=== PATIENT | male | born 1950 | race Caucasian/White ===

== ENCOUNTER 2016-11-27 08:18 | Inpatient (IN) | payer BC ==
[2016-11-27] MEDS ORDERED: SODIUM CHLORIDE 1,000 ML IV STA (08:19)
--- NOTE | 2016-11-27 08:22 | PDOC ---
History of Present Illness - General Chief Complaint: Pain, Acute Stated Complaint: RIGHT FLANK PAIN Time Seen by Provider: 11/27/16 08:19 History Source: Patient Exam Limitations: No Limitations - History of Present Illness Initial Comments: 11/27/16 08:22 This pt is a 66 yo M with a history of multiple prior kidney stone and HTN presenting to the ER with a complaint of right flank pain. He states his symptoms began this morning upon awakening. He has not had these symptoms in the past 8 years. Pain described as sharp, located in the right flank, rated 10/10. No exacerbating or alleviating factors. Pt has previously had symptoms like this, s/p cystoscopy, percutaneous nephrostomy, s/p lithotripsy. No fevers or chills. No hematuria or dysuria. PMH: HTN, Kidney stone PSH: lithotripsy Meds: ALL: hydrocodone --> itchy Social: PMD: [place] ROS: GENERAL/CONSTITUTIONAL: No: fever, chills, weakness, loss of appetite. HEAD, EYES, EARS, NOSE AND THROAT: No: change in vision, ear pain, discharge, sore throat, throat swelling. CARDIOVASCULAR: No: chest pain, lightheadedness, palpitations, syncope RESPIRATORY: No: cough, shortness of breath, wheezing, hemoptysis, stridor. GASTROINTESTINAL: No: abdominal pain, nausea, vomiting, diarrhea GENITOURINARY: Yes: flank pain No: dysuria, hematuria, frequency, urgency MUSCULOSKELETAL: No: back pain, neck pain, joint pain, muscle swelling or pain SKIN: No: lesions, pallor, rash or easy bruising. NEUROLOGIC: No: headache, vertigo, paresthesias, weakness ENDOCRINE: No: unexplained weight gain or loss HEMATOLOGIC/LYMPHATIC: No: anemia, easy bleeding, swelling nodes. PHYSICAL EXAM GENERAL: The patient is in no acute distress. HEAD: Normal with no signs of trauma. EYES: PERRLA, EOMI, sclera anicteric, conjunctiva clear. ENT: Ears normal, nares patent, oropharynx clear without exudates. Moist mucous membranes. NECK: Normal range of motion, supple without lymphadenopathy, JVD, or masses. LUNGS: Breath sounds equal, clear to auscultation bilaterally. No wheezes, and no crackles. HEART: Regular rate and rhythm, normal S1 and S2 without murmur, rub or gallop. ABDOMEN: No abdominal tenderness to palpation, EXTREMITIES: Normal range of motion, no edema. No clubbing or cyanosis. No erythema, or tenderness. NEUROLOGICAL: Cranial nerves II through XII grossly intact. Normal speech. No focal neurological deficits. MUSCULOSKELETAL: (+) CVA tenderness SKIN: Warm, Dry, normal turgor, no rashes or lesions noted. 11/27/16 08:31 11/27/16 08:34 11/27/16 09:06 Past History - Past Medical History Allergies/Adverse Reactions: Allergies Allergy/AdvReac Type Severity Reaction Status Date / Time hydrocodone [Hydrocodone] AdvReac Mild itching, Verified 11/27/16 08:19 nausea and vomiting COPD: Yes - Immunization History Td Vaccination: No - Psycho/Social/Smoking Cessation Hx Anxiety: No Suicidal Ideation: No Smoking Status: No Smoking History: Former smoker Number of Cigarettes Smoked Daily: 0 ED Treatment Course - LABORATORY CBC & Chemistry Diagram: 11/27/16 08:28 11/28/16 06:00 Medical Decision Making - Medical Decision Making 11/27/16 08:39 Right flank pain: DD: Kidney stone, Pyelonephritis, RP rupture Aneurysm (unlikely) Will give pain medications Check UA Check Creatinine Give IV fluids Spiral CT Re assess 11/27/16 09:08 Pt give toradol and morphine Pt more comfortable 11/27/16 09:09 Laboratory Tests 11/27/16 11/27/16 08:28 08:28 WBC 19.5 H D Hgb 16.5 Hct 47.2 Plt Count 334 Neutrophils % 84.5 H D Urine Blood 3+ H Urine Nitrite Negative Ur Leukocyte Esterase Negative Urine RBC 10-20 Urine WBC 0-3 Ur Epithelial Cells Few Urine Bacteria Moderate 11/27/16 09:31 Laboratory Tests 11/26/15 11/27/16 09:55 08:26 Sodium 136 Potassium 3.9 Chloride 104 Carbon Dioxide 27 BUN 17 24 H D Creatinine 0.9 1.4 H D Random Glucose 97 124 H D 11/27/16 09:[address] Marques Pt is concerning given high WBC, elevated creatinine He would like this patient to be transferred to [facility] Pt to have blood cultures and start abx Pt may need cystoscopy Pt to be admitted to hosptialist service Clinical impression: Obstructing kidney stone, leukocytosis, renal insufficiency 11/27/16 09:55 Pt wants to stay at [facility] for now I told him I will re assess him in 30 minutes 11/27/16 10:48 Case reviewed with [employer] Mary Ann Will admit to Hospitalist service Transfer to [facility] *DC/Admit/Observation/Transfer Diagnosis at time of Disposition: Kidney stone on right side - Discharge Dispostion Condition at time of disposition: Stable Admit: Yes - Referrals
[2016-11-27] MEDS ORDERED: KETOROLAC TROMETHAMINE 30 MG/1 ML VIAL IVPUSH ONE (08:33)
[2016-11-27] MEDS ORDERED: KETOROLAC TROMETHAMINE 30 MG/1 ML VIAL ONE ×2 (08:37→15:10)
[2016-11-27] MEDS ORDERED: morphine CARPU-JECT 10 MG/1 ML DISP.SYRIN ONE (08:42)
[2016-11-27] MEDS ORDERED: morphine CARPU-JECT 4 MG/1 ML DISP.SYRIN IVPUSH ONE (08:42)
[2016-11-27 08:45] LABS: URINE APPEARANCE Clear; URINE BILIRUBIN Negative (NEGATIVE); URINE GLUCOSE (UA) Negative (NEGATIVE); URINE KETONE Negative (NEGATIVE); URINE LEUK ESTERASE Negative (NEGATIVE); URINE NITRITE Negative (NEGATIVE); URINE UROBILINOGEN 0.2 E.U/dl (0.2-1.0)
[2016-11-27 08:49] LABS: URINE BLOOD 3+ (NEGATIVE); URINE COLOR YELLOW; URINE PROTEIN 1+ (NEGATIVE)
[2016-11-27 08:50] LABS: URINE BACTERIA MODERATE /hpf (NEGATIVE); URINE WBC 0-3 (3-5)
[2016-11-27 08:57] LABS: BASOPHIL 1.2 % (0-2.0); EOSINOPHIL 1.1 % (0-4.5); MCH 30.3 pg (25.7-33.7); MCHC 34.9 g/dl (32.0-35.9); MEAN PLT VOLUME 6.7 fl (7.5-11.1); NEUTROPHILS 84.5 % (42.8-82.8); PLATELET COUNT 334 K/MM3 (134-434); RDW 13.5 % (11.9-15.9); WHITE BLOOD COUNT 19.5 K/mm3 (4.0-10.0)
[2016-11-27 09:17] LABS: ALBUMIN 4.2 g/dl (3.5-5.0); BILIRUBIN,TOTAL 0.5 mg/dl (0.2-1.0); CALCIUM 9.6 mg/dl (8.4-10.2); COCKROFT - GAULT 82.07; CREATININE 1.4 mg/dl (0.6-1.3); TOT PROT 7.8 g/dl (6.4-8.3)
[2016-11-27] MEDS ORDERED: CEFTRIAXONE 1 GM in DEXTROSE 5%-WATER - 50 ML IVPB ONE (10:36)
[2016-11-27] MEDS ORDERED: KETOROLAC TROMETHAMINE 15 MG/ML VIAL IVPUSH PRN ×2 (10:49→15:39)
[2016-11-27] MEDS ORDERED: morphine CARPU-JECT 2 MG/1 ML DISP.SYRIN IVPUSH PRN (10:49)
[2016-11-27] MEDS ORDERED: cefTRIAXone SODIUM 1 GM VIAL ONE (10:52)
[2016-11-27] MEDS ORDERED: SODIUM CHLORIDE 1,000 ML IV SCH ×2 (11:00→15:39)
[2016-11-27] MEDS ORDERED: GENTAMICIN 80MG PREMIX BAG IVPB ONE (14:02)
--- NOTE | 2016-11-27 14:25 | HP ---
CHIEF COMPLAINT: Flank pain PCP: Dr. Catherine HISTORY OF PRESENT ILLNESS: This is a 66 year old male with a history of HTN and multiple prior episodes of nephrolithiasis who presented to the [place] ED today complaining of right flank pain since morning. Patient seen and examined s/p cystoscopy and stent placement. 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 Smoking: Quit 15 yrs ago Alcohol: None Allergies hydrocodone [Hydrocodone] Adverse Reaction (Mild, Verified 11/27/16 08:19) itching, nausea and vomiting HOME MEDICATIONS: REVIEW OF SYSTEMS CONSTITUTIONAL: Absent: fever, chills, diaphoresis, generalized weakness, malaise, loss of appetite, weight change HEENT: Absent: rhinorrhea, nasal congestion, throat pain, throat swelling, difficulty swallowing, mouth swelling, ear pain, eye pain, visual changes CARDIOVASCULAR: Absent: chest pain, syncope, palpitations, irregular heart rate, lightheadedness , peripheral edema RESPIRATORY: Absent: cough, shortness of breath, dyspnea with exertion, orthopnea, wheezing, stridor, hemoptysis GASTROINTESTINAL: Absent: abdominal pain, abdominal distension, nausea, vomiting, diarrhea, constipation, melena, hematochezia GENITOURINARY: Right flank pain, noted to have hematuria post-op MUSCULOSKELETAL: Absent: myalgia, arthralgia, joint swelling, back pain, neck pain SKIN: Absent: rash, itching, pallor HEMATOLOGIC/IMMUNOLOGIC: Absent: easy bleeding, easy bruising, lymphadenopathy, frequent infections ENDOCRINE: Absent: unexplained weight gain, unexplained weight loss, heat intolerance, cold intolerance NEUROLOGIC: Absent: headache, focal weakness or paresthesias, dizziness, unsteady gait, seizure, mental status changes, bladder or bowel incontinence PSYCHIATRIC: Absent: anxiety, depression, suicidal or homicidal ideation, hallucinations. PHYSICAL EXAMINATION GENERAL: Awake, alert, and fully oriented, in no acute distress. HEAD: Normal with no signs of trauma. EYES: Pupils equal, round and reactive to light, extraocular movements intact, sclera anicteric, conjunctiva clear. No lid lag. EARS, NOSE, THROAT: Ears normal, nares patent, oropharynx clear without exudates. Moist mucous membranes. NECK: Normal range of motion, supple without lymphadenopathy, JVD, or masses. LUNGS: Breath sounds equal, clear to auscultation bilaterally. No wheezes, and no crackles. No accessory muscle use. HEART: Regular rate and rhythm, normal S1 and S2 without murmur, rub or gallop. ABDOMEN: Soft, protuberant, not distended, normoactive bowel sounds, no guarding , no rebound, no masses. No hepatomegaly or splenomegaly. MUSCULOSKELETAL: Normal range of motion at all joints. No bony deformities or tenderness. No CVA tenderness. UPPER EXTREMITIES: 2+ pulses, warm, well-perfused. No cyanosis. No clubbing. No peripheral edema. LOWER EXTREMITIES: 2+ pulses, warm, well-perfused. No calf tenderness. No peripheral edema. NEUROLOGICAL: Cranial nerves II-XII intact. Normal speech. Normal gait. PSYCHIATRIC: Cooperative. Good eye contact. Appropriate mood and affect. SKIN: Warm, dry, normal turgor, no rashes or lesions noted, normal capillary refill. ASSESSMENT/PLAN: 66 year old male with obstructing renal calculus. Problem List - Problem (1) Kidney stone on right side Assessment/Plan: -S/p cystoscopy and stent placement with Dr. Das today -Continue Ceftriaxone 1g daily -Follow up blood and urine cultures -Ketoralac 15mg q6h prn pain (opiate allergy) -IVF -Follow Cr -Discuss[facility] with Dr[facility] Das[facility] Code[facility]s): N20.0 - CALCULUS OF KIDNEY (2) Hypertension Assessment/Plan: -BPs above goal -Continue home Norvasc -Re-assess when pain is controlled Code(s): I10 - ESSENTIAL (PRIMARY) HYPERTENSION (3) DVT prophylaxis Assessment/Plan: -Early ambulation -[facility] Code(s): SWS6976 - Visit type - Emergency Visit Emergency Visit: Yes ED Registration Date: 11/27/16 Care time: The patient presented to the Emergency Department on the above date and was hospitalized for further evaluation of their emergent condition. - New Patient This patient is new to me today: Yes Date on this admission: 11/27/16 - Critical Care Critical Care patient: No
[2016-11-27] MEDS ORDERED: MIDAZOLAM HCL 2 MG/2 ML SINGLE DOSE VIAL ONE (14:43)
--- NOTE | 2016-11-27 14:44 | CON.GU ---
Consult - History of Present Illness History of Present Illness: 66 yo male with acute onset of rt renal colic, chills and WBC of 19, creat 1.4 ( baseline 0.8). CT shows 3 mm obstructing RDU stone. Prior h/o nephrolithiasis necessiating percutaneous treatment in the past. No dysuria - Alcohol/Substance Use Hx Alcohol Use: No - Smoking History Smoking history: Former smoker Aproximately how many cigarettes per day: 0 Home Medications - Allergies Allergies/Adverse Reactions: Allergies Allergy/AdvReac Type Severity Reaction Status Date / Time hydrocodone [Hydrocodone] AdvReac Mild itching, Verified 11/27/16 08:19 nausea and vomiting Physical Exam- Vital Signs: Vital Signs Temperature 98.5 F 11/27/16 11:04 Pulse Rate 78 11/27/16 11:04 Respiratory Rate 18 11/27/16 11:04 Blood Pressure 152/90 11/27/16 11:04 O2 Sat by Pulse Oximetry (%) 98 11/27/16 11:04 Renal/: Yes: CVA Tenderness - Right Imaging - Results Cat Scan: Image Reviewed Problem List - Problems (1) Ureteral calculus, right Assessment/Plan: in light of elevated WBC, will plan for emergent cysto/stent placement. understands potential need for percutaneous nephrostomy tube placement Code(s): N20.1 - CALCULUS OF URETER
[2016-11-27] MEDS ORDERED: PROPOFOL 20 ML ONE (14:53)
[2016-11-27] MEDS ORDERED: SUCCINYLCHOLINE CHLORIDE 200 MG/10 ML VIAL ONE (14:54)
[2016-11-27] MEDS ORDERED: GENTAMICIN SO4 80 MG/2 ML VIAL ONE (15:02)
[2016-11-27] MEDS ORDERED: LIDOCAINE HCL/PF 2% SDV 5ML VIAL ONE (15:10)
[2016-11-27] MEDS ORDERED: DEXAMETHASONE SOD PHOSPHATE 4 MG/1 ML VIAL ONE (15:10)
--- NOTE | 2016-11-27 15:18 | OP ---
Operative Note - Note: Operative Date: 11/27/16 Pre-Operative Diagnosis: obstructing rt distal ureteral stone Operation: cysto/retro/stent placement Findings: obstructed rdu stone Post-Operative Diagnosis: Same as Pre-op Surgeon: Trace Das Anesthesiologist/SENIOR HEALTH CONSULTANT: Alize Morris MD Anesthesia: General Estimated Blood Loss (mls): 0 Drains & Tubes with Location: 7fr, 26cm stent Operative Report Dictated: Yes
[2016-11-27] MEDS ORDERED: ONDANSETRON 4 MG/2 ML VIAL IVPUSH PRN (15:35)
[2016-11-27] MEDS ORDERED: LACTATED RINGERS SOLUTION 1,000 ML IV SCH (15:45)
[2016-11-27 17:01] VITALS: BMI 35.2
[2016-11-28] MEDS: amLODIPine BESYLATE 5 MG TABLET (FP) PO SCH (03:40)
[2016-11-28] MEDS: SODIUM CHLORIDE 0.45% 1,000 ML IV SCH (03:41)
--- NOTE | 2016-11-28 06:19 | OP ---
DATE OF OPERATION: 11/27/2016 PREOPERATIVE DIAGNOSIS: Obstructing right distal ureteral stone and elevated white count. POSTOPERATIVE DIAGNOSIS: Obstructing right distal ureteral stone and elevated white count. PROCEDURE: Cystoscopy, retrograde pyelogram, and stent placement. SURGEON: Musa Rubalcava MD INDICATIONS: The patient is a 66-year-old male admitted with obstructing stone, chills, white count of 19, and elevated creatinine. He is taken emergently for cystoscopy and stent placement. Risks, benefits, and alternatives discussed. DESCRIPTION OF PROCEDURE: The patient was taken to the OR and placed supine on the operating room table. With cardiac monitoring and general anesthesia established, antibiotics had been given. At this point, the cystoscope was inserted into the urethra without difficulty 3 very occlusive. The bladder was visualized. No tumors or stones noted in the bladder. Attention was turned to the right ureteral orifice. This was intubated with a ureteral catheter, and a guidewire was advanced beyond the stone and distal ureter and up into the renal pelvis. Over the guidewire, a ureteral catheter was advanced, and contrast was injected for retrograde pyelogram. There was hydroureteronephrosis. Ureteral catheter was then removed, and a 7-Divehi 26-cm pigtail stent was then advanced in a fashion. Fluoroscopy confirmed stent to be in good position. The patient was awoken from anesthesia and transfer to the recovery room in stable condition. There were no complications. Estimated blood loss was 0. MUSA RUBALCAVA M.D. [id number]
[2016-11-28] MEDS ORDERED: amLODIPine BESYLATE 5 MG TABLET (FP) PO SCH (07:00)
[2016-11-28 08:01] LABS: BASOPHIL 0.2 % (0-2.0); MCH 30.1 pg (25.7-33.7); MCHC 35.4 g/dl (32.0-35.9); MEAN CELL VOLUME 84.8 fl (80-96); MEAN PLT VOLUME 6.8 fl (7.5-11.1); NEUTROPHILS 85.3 % (42.8-82.8); PLATELET COUNT 254 K/MM3 (134-434); RDW 14.3 % (11.9-15.9); WHITE BLOOD COUNT 13.3 K/mm3 (4.0-10.0)
[2016-11-28 08:28] LABS: ALBUMIN 3.3 g/dl (3.4-5.0); ANION GAP 11 (8-16); CALCIUM 8.3 mg/dL (8.5-10.1); CO2 26 mmol/L (21-32); GLUCOSE,RANDOM 108 mg/dL (74-106)
[2016-11-28 08:31] LABS: ALK PHOS 54 U/L (45-117); BILIRUBIN,TOTAL 0.7 mg/dL (0.2-1.0); COCKROFT - GAULT 130.3; CREATININE 0.9 mg/dL (0.7-1.3); SGOT/AST 19 U/L (15-37); SGPT/ALT 51 U/L (12-78); TOT PROT 6.3 g/dl (6.4-8.2)
[2016-11-28] MEDS ORDERED: CEFTRIAXONE 50 ML IVPB SCH (10:00)
[2016-11-28] MEDS: CEFTRIAXONE 50 ML IVPB SCH (10:08)
--- NOTE | 2016-11-28 10:37 | PN ---
Progress Note (short form) - Note Progress Note: afebrile hematuria clearing abd soft c/o stent pain analgesics prn may discharge when WBC normalized and cultures have identified organism will need lithotripsyu electively Problem List - Problems (1) Ureteral calculus, right Code(s): N20.1 - CALCULUS OF URETER
--- NOTE | 2016-11-28 10:49 | PN ---
Progress Note (short form) - Note Progress Note: c/o pain on urination. urine was bright blood in the evening but now is pinkish. states his pain is only when urinating. denies CP, SOB,fever, chills, N /V/C?D. last BM yesterday Current Medications Generic Name Dose Route Start Last Admin Trade Name Freq PRN Reason Stop Dose Admin Amlodipine Besylate 5 mg 11/28/16 03:30 11/28/16 03:40 Norvasc - PO 5 mg AM PRINCE Administration Fentanyl 50 mcg 11/27/16 15:35 Sublimaze Injection - IVPUSH 11/30/16 15:36 [id number] PRN PAIN Ceftriaxone Sodium 50 mls @ 100 mls/hr 11/28/16 10:00 11/28/16 10:08 Rocephin 1gm Ivpb (Pre-Docked) IVPB 100 mls/hr DAILY PRINCE Administration Sodium Chloride 1,000 mls @ 75 mls/hr 11/28/16 03:30 11/28/16 03:41 1/2 Normal Saline IV 75 mls/hr ASDIR PRINCE Administration Ketorolac Tromethamine 15 mg 11/27/16 15:39 Toradol Injection - IVPUSH 12/02/16 10:48 Q6H PRN PAIN Last Vital Signs Temp Pulse Resp BP Pulse Ox 98 F 94 H 20 154/95 97 11/28/16 07:00 11/28/16 07:00 11/28/16 07:00 11/28/16 07:00 11/27/16 21:00 General NAD CV S1 S2 RRR no murmur/rub/gallop Lungs CTA B/L no wheezing/rales/rhonci Abdomen soft NT/ND no CVA tenderness Extremities no pedal edema CBCD WBC 19.5 K/mm3 (4.0-10.0) H D 11/27/16 08:28 RBC 5.43 M/mm3 (4.00-5.60) 11/27/16 08:28 Hgb 16.5 GM/dl (11.7-16.9) 11/27/16 08:28 Hct 47.2 % (35.4-49) 11/27/16 08:28 MCV 87.0 fl (80-96) 11/27/16 08:28 MCHC 34.9 g/dl (32.0-35.9) 11/27/16 08:28 RDW 13.5 % (11.9-15.9) 11/27/16 08:28 Plt Count 334 K/MM3 (134-434) 11/27/16 08:28 MPV 6.7 fl (7.5-11.1) L 11/27/16 08:28 CMP Sodium 142 mmol/L (136-145) 11/28/16 06:00 Potassium 3.7 mmol/L (3.5-5.1) 11/28/16 06:00 Chloride 105 mmol/L (98-107) 11/28/16 06:00 Carbon Dioxide 26 mmol/L (21-32) 11/28/16 06:00 Anion Gap 11 (8-16) 11/28/16 06:00 BUN 17 mg/dL (7-18) 11/28/16 06:00 Creatinine 0.9 mg/dL (0.7-1.3) 11/28/16 06:00 Creat Clearance w eGFR > 60 (>60) 11/28/16 06:00 Calcium 8.3 mg/dL (8.5-10.1) L 11/28/16 06:00 Total Bilirubin 0.7 mg/dL (0.2-1.0) 11/28/16 06:00 AST 19 U/L (15-37) 11/28/16 06:00 ALT 51 U/L (12-78) 11/28/16 06:00 Alkaline Phosphatase 54 U/L (45-117) 11/28/16 06:00 Total Protein 6.3 g/dl (6.4-8.2) L 11/28/16 06:00 Albumin 3.3 g/dl (3.4-5.0) L 11/28/16 06:00 A/P 66yo M with PMH HTN and nephrolithasis was admitted to the hospital for their emergent condition 1. Nephrolithasis with R sided hydronephrosis- s/p stent placed yesterday. hematuria is improving. awaiting todays labs. Cont ceftriaxone day2. urology on board will perform lithotripsy as outpatient. f/u Cx. pain control 2. HTN- above goal. states his BP is not induced from his pain. will give extra norvasc 5mg and montior 4. GABRIELA- likely due to nephrolithasis. resolved. cont IVF until hematuria resolved 5. DVT ppx- EAM Visit type - Emergency Visit Emergency Visit: Yes ED Registration Date: 11/27/16 Care time: The patient presented to the Emergency Department on the above date and was hospitalized for further evaluation of their emergent condition. - New Patient This patient is new to me today: Yes Date on this admission: 11/28/16 - Critical Care Critical Care patient: No - Discharge Referral Referred to [facility] No
[2016-11-28] MEDS ORDERED: amLODIPine BESYLATE 5 MG TABLET (FP) PO ONE (11:00)
--- NOTE | 2016-11-28 18:10 | PN ---
Progress Note (short form) - Note Progress Note: Anesthesiology Post-op POD#1 s/p Cystoscopy under GA. Pt. is improved today in terms of WBC decreasing , Crestinine is also decreased. Pain under control, VSS. No apparent anesthesia- related complications.
[2016-11-29] MEDS: amLODIPine BESYLATE 5 MG TABLET (FP) PO SCH (06:27)
[2016-11-29] MEDS: SODIUM CHLORIDE 0.45% 1,000 ML IV SCH (06:28)
[2016-11-29 07:39] LABS: BASOPHIL 0.7 % (0-2.0); EOSINOPHIL 1.7 % (0-4.5); MCH 30.1 pg (25.7-33.7); MCHC 35.1 g/dl (32.0-35.9); MEAN CELL VOLUME 85.9 fl (80-96); MEAN PLT VOLUME 6.7 fl (7.5-11.1); NEUTROPHILS 63.1 % (42.8-82.8); PLATELET COUNT 229 K/MM3 (134-434); RDW 14.7 % (11.9-15.9); WHITE BLOOD COUNT 8.8 K/mm3 (4.0-10.0)
[2016-11-29] MEDS: CEFTRIAXONE 50 ML IVPB SCH (09:41)
--- NOTE | 2016-11-29 09:45 | PN ---
Progress Note (short form) - Note Progress Note: afebrile urine clear abd soft WBC normal may discharge home today with po analgesics/antibiotics will need lithotripsy electively as outpt Problem List - Problems (1) Ureteral calculus, right Code(s): N20.1 - CALCULUS OF URETER
[2016-11-29] MEDS ORDERED: amLODIPine BESYLATE 5 MG TABLET (FP) PO ONE (11:00)
--- NOTE | 2016-11-29 11:21 | DS ---
Physical Exam: SUBJECTIVE: Patient seen and examined. currently asymptomatic. hematuria resolved. denies CP, SOB,fever, chills, N/V/C?D OBJECTIVE: Vital Signs Period Temp Pulse Resp BP Sys/Humphreys Pulse Ox Last 24 Hr 97.3 F-99.1 F 74-87 18-20 140-159/69-93 97 PHYSICAL EXAM GENERAL: The patient is awake, alert, and fully oriented, in no acute distress. HEAD: Normal with no signs of trauma. EYES: PERRL, extraocular movements intact, sclera anicteric, conjunctiva clear. ENT: Ears normal, nares patent, oropharynx clear without exudates, moist mucous membranes. NECK: Trachea midline, full range of motion, supple. LUNGS: Breath sounds equal, clear to auscultation bilaterally, no wheezes, no crackles, no accessory muscle use. HEART: Regular rate and rhythm, S1, S2 without murmur, rub or gallop. ABDOMEN: Soft, nontender, nondistended, normoactive bowel sounds, no guarding, no rebound, no hepatosplenomegaly, no masses. EXTREMITIES: 2+ pulses, warm, well-perfused, no edema. NEUROLOGICAL: Cranial nerves II through XII grossly intact. Normal speech, gait not observed. PSYCH: Normal mood, normal affect. SKIN: Warm, dry, normal turgor, no rashes or lesions noted. LABS Laboratory Results - last 24 hr 11/28/16 11/29/16 06:00 06:00 WBC 13.3 H 8.8 D RBC 4.62 4.73 Hgb 13.9 14.2 Hct 39.1 40.6 MCV 84.8 85.9 MCHC 35.4 35.1 RDW 14.3 14.7 Plt Count 254 229 MPV 6.8 L 6.7 L Neutrophils % 85.3 H 63.1 D Lymphocytes % 10.4 26.9 D Monocytes % 4.1 7.6 D Eosinophils % 0.0 1.7 D Basophils % 0.2 0.7 D HOSPITAL COURSE: Date of Admission:11/27/16 Date of Discharge: 11/29/16 admitting diagnosis: R kidney stone. R hydronephrosis, HTN Pre hospital course 66 year old male with a history of HTN and multiple prior episodes of nephrolithiasis who presented to the [place] ED today complaining of right flank pain since morning. Patient seen and examined s/p cystoscopy and stent placement. Subsequent hospital course admitted to medicine. urology consulted with stent placement. Ceftriaxone started for leukocytosis and likelihood of developing UTI. hematuria and pain resolved. BP elevated and norvasc increased to 10mg. d/c home on cetin for additional 7 days. Minutes to complete discharge: 40 Discharge Summary Reason For Visit: RIGHT FLANK PAIN Current Active Problems DVT prophylaxis (Acute) Hypertension (Acute) Kidney stone on right side (Acute) Ureteral calculus, right (Acute) Condition: Improved - Instructions Diet, Activity, Other Instructions: You were treated for a kidney stone with a stent that was placed. You will need further intervention for this stone and need to follow up with the urologist. Because of this you were placed on an antibiotic. please start tomorrow (as you received todays dose) and take until completed even if you have no symptoms. your blood pressure medication was increased. follow up with your primary care doctor this week to check your blood pressure and evaluate if you require further changes Return to the ER if your symptoms worsen or if you develop fever (Temp >101) Referrals: Trace Das MD [Staff Physician] - Brian Catherine MD [Primary Care Provider] - Disposition: HOME - Home Medications Comprehensive Discharge Medication List: Ambulatory Orders Amlodipine Besylate [Norvasc -] 10 mg PO DAILY #30 tablet 11/29/16 Cefuroxime Axetil [Ceftin -] 500 mg PO Q12H #14 tablet 11/29/16 Tramadol HCl 50 mg PO Q6H PRN #10 tablet MDD 200 11/29/16 This patient is new to me today: Yes Date on this admission: 11/29/16 Emergency Visit: No Critical Care patient: No - Discharge Referral Referred to [facility] Yes Physician Referral: Brian Catherine MD (Int Med)
[2016-11-29 14:04] VITALS: BP 165/86; PULSE 86; TEMP 98.2
[2016-12-21 14:13] LABS: CA OXALATE DIHYDRATE 10 % (.); COLOR Brown (.)
== END 2016-11-29 15:28 | disposition home or self-care (01) | DRG 694 ==
LOC: FER 08:18 → J7W 13:58
PROVIDERS: ADMIT Internal Medicine; ATTEND Internal Medicine
PROC: 0T763DZ Dilation of Right Ureter with Intraluminal Device, Percutaneous Approach (ICD-10-PCS; principal; 2016-11-27 16:00)
PROC: BT1DYZZ Fluoroscopy of Right Kidney, Ureter and Bladder using Other Contrast (ICD-10-PCS; 2016-11-27 16:00)
DX: N13.2 Hydronephrosis with renal and ureteral calculous obstruction (principal); I10 Essential (primary) hypertension; N39.0 Urinary tract infection, site not specified; R31.9 Hematuria, unspecified; D72.829 Elevated white blood cell count, unspecified; N17.9 Acute kidney failure, unspecified
CPT/HCPCS: 36415; 74176; 76000-TC; 80053; 81003; 81015; 82360; 85025; 87040; 94760; 99283-25

== ENCOUNTER 2016-12-10 08:38 | Day surgery (SDC) | payer BC ==
[2016-12-08 17:45] VITALS: BMI 35.2
[2016-12-10] MEDS ORDERED: MIDAZOLAM HCL 2 MG/2 ML SINGLE DOSE VIAL ONE (11:21)
[2016-12-10] MEDS ORDERED: PROPOFOL 20 ML ONE (11:21)
[2016-12-10] MEDS ORDERED: LIDOCAINE HCL/PF 2% SDV 5ML VIAL ONE (11:28)
[2016-12-10] MEDS ORDERED: ceFAZolin SODIUM 1 GM VIAL ONE (11:28)
[2016-12-10] MEDS ORDERED: SODIUM CHLORIDE 0.9% P/F 10 ML VIAL IJ ONE (11:37)
[2016-12-10] MEDS ORDERED: ceFAZolin SODIUM 1 GM VIAL IVPB ONE (11:38)
[2016-12-10] MEDS ORDERED: DEXAMETHASONE SOD PHOSPHATE 4 MG/1 ML VIAL ONE (11:39)
[2016-12-10] MEDS ORDERED: IOHEXOL 300 MG/ML INFUS..BTL IJ ONE (11:57)
[2016-12-10] MEDS ORDERED: KETOROLAC TROMETHAMINE 30 MG/1 ML VIAL ONE (12:12)
[2016-12-10] MEDS ORDERED: oxyCODONE HCL 5 MG TABLET PO PRN (12:26)
--- NOTE | 2016-12-10 12:28 | OP ---
Operative Note - Note: Operative Date: 12/10/16 Pre-Operative Diagnosis: RDU stone Operation: cysto/rt ureteroscopy/laser litho/stone basketing/stent replacement Findings: impacted rt du stone Post-Operative Diagnosis: Same as Pre-op Surgeon: Trace Das Anesthesiologist/MANAGER INSPECTION: Edward Turpin Anesthesia: General, Spinal Specimens Removed: stone frags Estimated Blood Loss (mls): 10 Drains & Tubes with Location: 7fr, 24cm stent Operative Report Dictated: Yes
[2016-12-10] MEDS ORDERED: ELECTROLYTE-148 SOLN 1,000 ML IV SCH (12:30)
[2016-12-10] MEDS ORDERED: PROMETHAZINE HCL 25 MG/1 ML VIAL IVPUSH PRN (12:34)
[2016-12-10] MEDS ORDERED: ONDANSETRON 4 MG/2 ML VIAL IVPUSH PRN (12:34)
[2016-12-10] MEDS ORDERED: LACTATED RINGERS SOLUTION 1,000 ML IV SCH (12:45)
--- NOTE | 2016-12-10 13:22 | OP ---
DATE OF OPERATION: 12/10/2016 PREOPERATIVE DIAGNOSIS: Right distal ureteral stone. POSTOPERATIVE DIAGNOSIS: Impacted right distal ureteral stone. PROCEDURE: Cystoscopy, stent removal, ureteroscopy, laser lithotripsy, stone basketing, and stent replacement. SURGEON: Musa Rubalcava MD INDICATIONS: Patient is a 66-year-old male who recently underwent stent placement 2 weeks ago for obstructing disease, goes to the OR for treatment of stone today. Risks, benefits, and alternatives were discussed, understanding the risks of bleeding, infection, stricture formation, potential need for additional procedures, potential inability to eradicate the stone burden. DESCRIPTION OF PROCEDURE: After informed consent was obtained, patient was taken to the OR, placed supine on the OR table. After cardiac monitoring administered and general anesthesia established, she was prepped and draped in dorsal lithotomy position. The 22-sheath cystoscope was inserted without difficulty. Anterior urethra was normal. Prostatic urethra was 3 cm with high bladder neck. Stent was seen emanating from right ureteral orifice. This was grasped, and through the stent, a guidewire was placed up into the right renal pelvis. Alongside the guidewire, a rigid ureteroscope was advanced into the distal ureter, where a stone, approximately 4 mm in size, was seen impacted in the wall of the distal ureter. The stone was disimpacted using a combination of the tip of the scope, manipulation with the tip of the scope, and using the 365 micron laser fiber to break the stone into multiple fragments. The fragments were then removed with the stone basket and sent to Pathology for analysis. The area where the stone was impacted revealed some concentric narrowing of the ureter, but the scope was negotiated beyond this area, and the rest of the ureter up to the mid ureter was inspected, and no other stones were noted. Ureteroscope was then removed, and a 7-Greenlandic 24-cm double pigtail stent was then advanced in a monorail fashion. Fluoroscopy confirmed this stent to be in good position. Patient tolerated the procedure well, was awoken from anesthesia, and transferred to the recovery room in stable condition. There were no complications. ESTIMATED BLOOD LOSS: Minimal. MUSA RUBALCAVA M.D. [id number]
[2016-12-10 15:38] VITALS: BP 138/89; PULSE 84; TEMP 97.8
== END 2016-12-10 14:30 | disposition home or self-care (01) ==
LOC: JASU-SURG 08:38
PROVIDERS: ATTEND Urology
PROC: 0TF68ZZ Fragmentation in Right Ureter, Via Natural or Artificial Opening Endoscopic (ICD-10-PCS; principal; 2016-12-10 10:00)
PROC: 0T768DZ Dilation of Right Ureter with Intraluminal Device, Via Natural or Artificial Opening Endoscopic (ICD-10-PCS; 2016-12-10 10:00)
DX: N20.1 Calculus of ureter (principal)
CPT/HCPCS: 76000-TC; 88300-TC; 94760

== ENCOUNTER 2018-03-02 10:50 | Day surgery (SDC) | payer OTHER, BC ==
[2018-02-22 11:51] VITALS: BMI 31.5
[2018-03-02] MEDS ORDERED: PROPOFOL 20 ML ONE ×2 (11:06)
[2018-03-02 12:22] VITALS: TEMP 97.7
[2018-03-02 12:45] VITALS: BP 137/85; PULSE 66
--- NOTE | 2018-03-21 10:34 | PATH ---
Surgical Pathology Report Patient Name: ANDI RIOS [facility]. Rec. #: [id number] /Age/Gender: 1950 (Age: 67) / M Account: [id number] Location: [facility]OS[facility] Taken: 02/09/2018 Received: 02/09/2018 Reported: 02/11/2018 Physicians: Quyen Gutiérrez M.D. Specimen(s) Received A: DUODENUM B: ANTRUM C: BX GE JUNCTION Clinical History Dyspepsia Postoperative diagnosis: Mucosal tongue, rule out Person's, peptic ulcer disease Final Diagnosis A. DUODENUM, BIOPSY: DUODENAL MUCOSA WITH NO DIAGNOSTIC ABNORMALITIES. B. ANTRUM, BIOPSY: GASTRIC MUCOSA WITH REACTIVE GASTROPATHY. IMMUNOSTAIN IS NEGATIVE FOR H. PYLORI ORGANISMS. C. GE JUNCTION, BIOPSY: COLUMNAR (GASTRIC) MUCOSA WITH MILD CHRONIC INFLAMMATION. NEGATIVE FOR INTESTINAL METAPLASIA. Electronically Signed Catrachito Grigsby M.D. Gross Description A. Received in formalin, labeled "duodenum" are 3 sifuentes, irregular portions of soft tissue ranging from 0.2-0.3 cm. in greatest dimension. The specimens are submitted in toto in one cassette. B. Received in formalin, labeled "antrum" are 2 sifuentes, irregular portions of soft tissue averaging 0.3 cm. in greatest dimension. The specimens are submitted in toto in one cassette. C. Received in formalin, labeled "GE junction" is a sifuentes, irregular portion of soft tissue measuring 0.3 cm. in greatest dimension. The specimen is submitted in toto in one cassette. 02/10/2018 saudi02/10/2018
== END 2018-03-02 12:15 | disposition home or self-care (01) ==
LOC: FASU-ENDO 10:50
PROVIDERS: ATTEND Internal Medicine Gastroenterology
PROC: 0DJD8ZZ Inspection of Lower Intestinal Tract, Via Natural or Artificial Opening Endoscopic (ICD-10-PCS; principal; 2018-03-02 11:45)
DX: Z12.11 Encounter for screening for malignant neoplasm of colon (principal); K64.8 Other hemorrhoids
CPT/HCPCS: 88305-TC; 88342-TC

== ENCOUNTER 2018-06-15 09:30 | Day surgery (SDC) | payer OTHER, BC ==
[2018-06-08 17:10] VITALS: BMI 30.1
[2018-06-15] MEDS ORDERED: PROPOFOL 20 ML ONE ×2 (09:40)
[2018-06-15 10:32] VITALS: TEMP 98.2
[2018-06-15 11:16] VITALS: BP 114/52; PULSE 74
--- NOTE | 2018-06-16 13:14 | PATH ---
Surgical Pathology Report Patient Name: ANDI RIOS [facility]. Rec. #: [id number] /Age/Gender: 1950 (Age: 68) / M Account: [id number] Location: [facility] Taken: 06/15/2018 Received: 06/15/2018 Reported: 06/16/2018 Physicians: Quyen Gutiérrez M.D. Specimen(s) Received A: BX ANTRUM B: GE JUNCTION Clinical History Functional dyspepsia Postoperative diagnosis: Rule out celiac disease, rule out H. Pylori, gastritis, rule out Person's esophagus Final Diagnosis A. ANTRUM, BIOPSY: GASTRIC MUCOSA WITH REACTIVE GASTROPATHY AND FOCAL ACTIVE INFLAMMATION. IMMUNOSTAIN FOR H. PYLORI IS NEGATIVE. NEGATIVE FOR INTESTINAL METAPLASIA. B. GE JUNCTION, BIOPSY: COLUMNAR (GASTRIC) MUCOSA WITH NO SIGNIFICANT PATHOLOGIC FINDINGS. NEGATIVE FOR INTESTINAL METAPLASIA. Electronically Signed Catrachito Grigsby M.D. Gross Description A. Received in formalin, labeled "antrum" are 2 sifuentes, irregular portions of soft tissue measuring 0.1 and 0.3 cm. in greatest dimension. The specimens are submitted in toto in one cassette. B. Received in formalin, labeled "GE junction" is a sifuentes, irregular portion of soft tissue measuring 0.3 cm. in greatest dimension. The specimen is submitted in toto in one cassette. 06/15/201806/15/2018
== END 2018-06-15 11:19 | disposition home or self-care (01) ==
LOC: FASU-ENDO 09:30
PROVIDERS: ATTEND Internal Medicine Gastroenterology
PROC: 0DB38ZX Excision of Lower Esophagus, Via Natural or Artificial Opening Endoscopic, Diagnostic (ICD-10-PCS; principal; 2018-06-15 10:11)
PROC: 0DB68ZX Excision of Stomach, Via Natural or Artificial Opening Endoscopic, Diagnostic (ICD-10-PCS; 2018-06-15 10:11)
DX: K25.9 Gastric ulcer, unspecified as acute or chronic, without hemorrhage or perforation (principal); Z09 Encounter for follow-up examination after completed treatment for conditions other than malignant neoplasm; Z87.11 Personal history of peptic ulcer disease; K31.9 Disease of stomach and duodenum, unspecified
CPT/HCPCS: 88305-TC; 88342-TC

== ENCOUNTER 2019-05-10 10:17 | Day surgery (SDC) | payer OTHER, BC ==
[2019-05-05 16:34] VITALS: BMI 32.5
[2019-05-10] MEDS ORDERED: PROPOFOL 20 ML ONE (11:02)
[2019-05-10] MEDS ORDERED: LIDOCAINE HCL/PF 2% SDV 5ML VIAL ONE (11:02)
[2019-05-10 11:55] VITALS: TEMP 98
[2019-05-10 13:21] VITALS: BP 149/90; PULSE 76
--- NOTE | 2019-05-12 18:25 | PATH ---
Surgical Pathology Report Patient Name: ANDI RIOS [facility]. Rec. #: [id number] /Age/Gender: 1950 (Age: 68) / M Account: [id number] Location: [facility] Taken: 05/10/2019 Received: 05/10/2019 Reported: 05/12/2019 Physicians: Quyen Gutiérrez M.D. Specimen(s) Received A: SECOND PORTION DUODENUM B: ANTRUM C: GASTRIC BODY POLYP D: GE JUNCTION Clinical History Gastric ulcer Postoperative diagnosis: Gastric body polyps, erosive gastropathy, Gastritis Final Diagnosis A. DUODENUM, SECOND PORTION, BIOPSY: DUODENAL MUCOSA WITHOUT SIGNIFICANT PATHOLOGIC FINDINGS. B. GASTRIC ANTRUM, BIOPSY: GASTRIC ANTRAL MUCOSA WITH MILD CHRONIC GASTRITIS. IMMUNOHISTOCHEMICAL STAIN FOR H. PYLORI IS NEGATIVE. C. GASTRIC BODY, POLYP, BIOPSY: POLYPOID GASTRIC BODY MUCOSA WITH MILD CHRONIC GASTRITIS. IMMUNOHISTOCHEMICAL STAIN FOR H. PYLORI IS NEGATIVE. D. GE JUNCTION, BIOPSY: SQUAMOUS MUCOSA WITH VASCULAR CONGESTION, MILD PAPILLARY AND BASAL CELL HYPERPLASIA CONSISTENT WITH REFLUX TYPE CHANGES. Electronically Signed Quyen Bowser M.D. Gross Description A. Received in formalin, labeled "second portion duodenum" is a sifuentes, irregular portion of soft tissue measuring 0.5 cm. in greatest dimension. The specimen is submitted in toto in one cassette. B. Received in formalin, labeled "gastric antrum" is a sifuentes, irregular portion of soft tissue measuring 0.4 cm. in greatest dimension. The specimen is submitted in toto in one cassette. C. Received in formalin, labeled "gastric body polyp" are 3 sifuentes, irregular portions of soft tissue measuring 0.1-0.3 cm. in greatest dimension. The specimens are submitted in toto in one cassette. D. Received in formalin, labeled "GE junction" is a sifuentes, irregular portion of soft tissue measuring 0.2 cm. in greatest dimension. The specimen is submitted in toto in one cassette. MLSZ/05/12/2019 sanml/05/12/2019
== END 2019-05-10 12:35 | disposition home or self-care (01) ==
LOC: FASU-ENDO 10:17
PROVIDERS: ATTEND Internal Medicine Gastroenterology
PROC: 0DB68ZX Excision of Stomach, Via Natural or Artificial Opening Endoscopic, Diagnostic (ICD-10-PCS; 2019-05-10)
PROC: 0DB48ZX Excision of Esophagogastric Junction, Via Natural or Artificial Opening Endoscopic, Diagnostic (ICD-10-PCS; 2019-05-10)
PROC: 0DB98ZX Excision of Duodenum, Via Natural or Artificial Opening Endoscopic, Diagnostic (ICD-10-PCS; principal; 2019-05-10 11:26)
DX: K31.7 Polyp of stomach and duodenum (principal); K29.50 Unspecified chronic gastritis without bleeding; R10.13 Epigastric pain; R10.9 Unspecified abdominal pain
CPT/HCPCS: 88305-TC; 88342-TC